=== PATIENT | male | born 1945 | race Caucasian/White ===

== ENCOUNTER 2022-12-01 09:23 | Outpatient (CLI) | payer MEDICARE, OTHER | END 2022-12-01 09:24 | disposition home or self-care (01) | LOC: CSHCT 09:23 | PROVIDERS: ATTEND Urology | DX: R31.29 Other microscopic hematuria (principal); N28.1 Cyst of kidney, acquired; N40.0 Benign prostatic hyperplasia without lower urinary tract symptoms; K76.9 Liver disease, unspecified | CPT/HCPCS: 74178; 82565 ==

== ENCOUNTER 2024-07-03 09:01 | Outpatient (CLI) | payer MEDICARE, OTHER | END 2024-07-03 09:02 | disposition home or self-care (01) | LOC: CSHULT 09:01 | PROVIDERS: ATTEND Urology | DX: N40.1 Benign prostatic hyperplasia with lower urinary tract symptoms (principal); R31.29 Other microscopic hematuria; N28.1 Cyst of kidney, acquired; N43.40 Spermatocele of epididymis, unspecified | CPT/HCPCS: 76770 ==

== ENCOUNTER 2025-06-24 06:21 | Day surgery (SDC) | payer MEDICARE, OTHER ==
[2025-06-16 10:33] VITALS: BMI 21.0
[2025-06-24] MEDS ORDERED: PROPOFOL 20 ML ONE (07:37)
== END 2025-06-24 09:00 | disposition home or self-care (01) ==
LOC: CSHSDC 06:21
PROVIDERS: ATTEND Otolaryngology Otolaryngic Allergy
PROC: 4A1ZXQZ Monitoring of Sleep, External Approach (ICD-10-PCS; principal; 2025-06-24)
DX: G47.33 Obstructive sleep apnea (adult) (pediatric) (principal); H61.23 Impacted cerumen, bilateral; J34.829 Nasal valve collapse, unspecified; J31.0 Chronic rhinitis; I10 Essential (primary) hypertension; Z95.0 Presence of cardiac pacemaker; Z79.82 Long term (current) use of aspirin
CPT/HCPCS: 42975; J2704